=== PATIENT | male | born 1985 | race Caucasian/White ===

== ENCOUNTER → 2024-01-26 14:56 | Outpatient (REF) | payer OTHER, SELFPAY ==
[2024-01-26 16:02] LABS: % Basophils 0.2 % (0-2); % Eosinophils 0.7 % (0-6); % Immature Granulocytes 0.2 % (0-0.5); % Lymphocytes 27.8 % (20.5-51.1); % Monocytes 10.1 % (1.7-9.3); Absolute Lymphocytes 1.2 10^3/uL (1.2-3.4); Absolute Monocytes 0.4 10^3/uL (0.1-0.6); Absolute Neutrophils 2.5 10^3/uL (1.4-6.5); Hematocrit 49.8 % (39.0-52.0); Hemoglobin 17.5 g/dL (13.0-18.0); Mean Corp Hgb Conc. 35.1 g/dL (33.0-37.0); Mean Corpuscular Hgb 31.6 pg (27.0-31.0); Mean Corpuscular Volume 90.1 fL (80.0-94.0); Mean Platelet Volume 9.9 fL (7.4-10.4); Nucleated Red Blood Cells % 0 % (-); Platelet Count 224 10^3/uL (130-400); Red Blood Cell Count 5.53 10^6/uL (4.70-6.10); Red Cell Dist. Width 11.9 % (11.5-14.5); White Blood Cell Count 4.2 10^3/uL (4.8-10.8)
[2024-01-26 16:06] LABS: Urine Albumin Negative (Neg - Trace); Urine Bilirubin Negative (Negative); Urine Character Clear (Clear); Urine Color Yellow; Urine Glucose Negative (Negative); Urine Ketone Negative (Negative); Urine Leukocyte Negative (Negative); Urine Nitrite Negative (Negative); Urine Occult Blood Negative (Negative); Urine Urobilinogen Negative (Neg - 1+)
[2024-01-26 16:07] LABS: Erythrocyte Sed Rate 5 mm/hour (0-20)
[2024-01-26 16:26] LABS: Protein/creatinine Ratio 0.1; Urine Protein 7 mg/dl
[2024-01-26 16:41] LABS: ALT (SGPT) 14 U/L (0-50); AST (SGOT) 23 U/L (17-59); Alkaline Phosphatase 49 U/L (38-126); Blood Urea Nitrogen 20 mg/dl (9-20); Calcium 10.1 mg/dl (8.4-10.2); Carbon Dioxide 29 mmol/L (22-30); Chloride 100 mmol/L (98-107); Creatine Phosphokinase 146 U/L (55-170); Glucose 80 mg/dl (70-99); Potassium 4.2 mmol/L (3.5-5.1); Sodium 135 mmol/L (135-145); Total Bilirubin 1.3 mg/dl (0.2-1.3); Total Protein 7.8 g/dl (6.3-8.2); eGFR > 60.00
[2024-01-26 16:43] LABS: C-Reactive Protein < 5.00 mg/L (0.0-10.00)
[2024-01-26 16:53] LABS: Complement C3 102 mg/dl (88-165)
[2024-01-26 16:59] LABS: Vitamin D, 25-OH*** 101 ng/mL (30-80)
[2024-01-26 17:38] LABS: Urine Red Blood Cell 0-2 /HPF (0-2); Urine Squamous Cell 0-2 /LPF (Few); Urine White Cell 0-2 /HPF (0-5)
[2024-01-26 18:18] LABS: TSH 1.78 uIU/ml (0.47-4.68)
[2024-01-26 20:00] LABS: Total Thyroxine 7.85 ug/dl (5.5-11.0)
[2024-01-28 17:01] LABS: ds-DNA Ab, IgG Reflex To Titer 2 IU (0-24)
[2024-01-29 03:07] LABS: ANA, IgG Reflex to HEp-2 Detected (None Detected)
[2024-01-29 06:47] LABS: Jo-1 Antibodies 0 AU/mL (0-40)
[2024-01-30 15:37] LABS: ANA, HEp-2, IgG <1:80 (<1:80)
== END ==
LOC: REG 14:56
PROVIDERS: ATTENDING PHYSICIAN Physician Assistant; FAMILY PHYSICIAN Family Medicine
DX: E07.9 Disorder of thyroid, unspecified (principal); E55.9 Vitamin D deficiency, unspecified; J32.9 Chronic sinusitis, unspecified; M32.9 Systemic lupus erythematosus, unspecified; M60.9 Myositis, unspecified; M79.10 Myalgia, unspecified site; R53.83 Other fatigue
CPT/HCPCS: 36415; 80053; 81003; 81015; 82306; 82550; 82570; 84156; 84436; 84443; 85025; 85652; 86038; 86039; 86140; 86160; 86225; 86235